=== PATIENT | female | born 1995 | race African-American/Black ===

== ENCOUNTER 2020-05-25 16:55 | Emergency (ER) | payer SELFPAY ==
[~2020-05-25] VITALS: Ht 165.1 cm; Wt 59.0 kg
[2020-05-25 16:58] VITALS: BP 130/97
== END 2020-05-25 18:25 | disposition home or self-care (01) ==
LOC: ER 16:55
DX: Z00.00 Encounter for general adult medical examination without abnormal findings (principal)
CPT/HCPCS: 99283